=== PATIENT | female | born 2000 | race Caucasian/White ===

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

== ENCOUNTER → 2020-03-02 | Outpatient (REF) | payer MEDICAID, OTHER ==
[2020-03-02 14:20] LABS: HEMOGLOBIN A1c 5.5 %
[2020-03-02 15:44] LABS: CHLAMYDIA DNA AMPLIFICATION NEGATIVE (NEGATIVE); GC DNA AMPLIFICATION NEGATIVE (NEGATIVE)
== END ==
LOC: M PLALAB 11:45
PROVIDERS: ATTEND Advanced Practice Midwife
DX: E28.2 Polycystic ovarian syndrome (principal); Z11.3 Encounter for screening for infections with a predominantly sexual mode of transmission

== ENCOUNTER → 2020-03-04 | Outpatient (CLI) | payer OTHER, SELFPAY | LOC: M LABSMTC 10:58 | PROVIDERS: ATTEND Pediatrics | DX: Z20.822 Contact with and (suspected) exposure to COVID-19 (principal) ==

== ENCOUNTER → 2020-06-09 | Outpatient (CLI) | payer MEDICAID ==
--- NOTE | 2020-06-09 15:37 | REP ---
INDICATION: E28.2 PCOS,Z30.431 SURVEILLANCE OF IUD. COMPARISON: Comparison pelvic sonography 20 August 2019.. TECHNIQUE: Transabdominal and transvaginal scanning were performed. FINDINGS: Uterine dimensions are normal at 8.0 x 3.0 x 4.1 cm. Endometrial echo is 0.4 cm thick and centrally placed. No free fluid is seen in the cul-de-sac. Visualized bladder jasmine are smooth. An IUD is again noted in the uterine endometrium in good position. Visualized bladder jasmine are smooth. The right ovary has dimensions of 3.8 x 2.3 x 2.8 cm. It's Doppler flow is normal with a resistive index of 0.63. The left ovary dimensions are normal as well at 4.0 x 2.1 x 3.1 cm. It's Doppler flow was normal with resistive index of 0.69. IMPRESSION: Normal pelvic sonography. IUD remains in place, good position. <Electronically signed by Efren Persaud > 06/09/20 [id number]
== END ==
LOC: M WHC 14:55
PROVIDERS: ATTEND Advanced Practice Midwife
DX: E28.2 Polycystic ovarian syndrome (principal); Z30.431 Encounter for routine checking of intrauterine contraceptive device

== ENCOUNTER → 2020-07-13 | Outpatient (REF) | payer OTHER | LOC: M LAB REF 11:52 | PROVIDERS: ATTEND Physician Assistant | DX: B34.9 Viral infection, unspecified (principal) ==

== ENCOUNTER → 2020-09-28 | Outpatient (REF) | LOC: M LABSMTC 12:08 | PROVIDERS: ATTEND Pediatrics | DX: Z20.822 Contact with and (suspected) exposure to COVID-19 (principal) ==

== ENCOUNTER → 2021-02-21 | Outpatient (REF) | LOC: M LABSMTC 12:37 | PROVIDERS: ATTEND Pediatrics | DX: Z20.822 Contact with and (suspected) exposure to COVID-19 (principal) ==

== ENCOUNTER → 2021-06-04 | Outpatient (CLI) | payer OTHER, MEDICAID ==
[2021-06-04 15:48] LABS: BASO % 0.2 % (0.0-1.0); EOS # 0.1 10^3/uL (0.0-0.5); EOS % 0.9 % (0.0-3.0); HEMATOCRIT 40.3 % (36.0-47.0); HEMOGLOBIN 13.3 g/dl (12.0-15.5); LYMPH # 3.5 10^3/uL (1.5-5.0); LYMPH % 39.3 % (24.0-44.0); MEAN CORPUSCULAR HEMOGLOBIN 30.7 pg (27.0-33.0); MEAN CORPUSCULAR VOLUME 93.1 fl (80.0-96.0); MONO # 0.9 10^3/uL (0.0-0.8); MONO % 10.3 % (2.0-8.0); NEUTROPHILS # 4.3 10^3/uL (1.5-8.5); NEUTROPHILS % 48.8 % (36.0-66.0); PLATELET COUNT, AUTOMATED 361 10^3/uL (150-450); RED BLOOD COUNT 4.33 10^6/uL (4.00-5.40); WHITE BLOOD COUNT 8.9 10^3/uL (4.0-10.0)
[2021-06-04 16:29] LABS: BLOOD UREA NITROGEN 14 MG/DL (7-18); CALCIUM LEVEL 8.8 MG/DL (8.5-10.1); CARBON DIOXIDE LEVEL 30 MEQ/L (21-32); CHLORIDE LEVEL 107 MEQ/L (98-107); CREATININE FOR GFR 0.74 MG/DL (0.55-1.30); GLOMERULAR FILTRATION RATE > 60.0 (>60); GLUCOSE, FASTING 91 MG/DL (70-100); SODIUM LEVEL 141 MEQ/L (136-145)
[2021-06-04 17:11] LABS: TOTAL 25(OH) VITAMIN D 12.7 NG/ML (30.0-100.0)
== END ==
LOC: M WUC 11:57
PROVIDERS: ATTEND Family Medicine
DX: F41.9 Anxiety disorder, unspecified (principal)

== ENCOUNTER → 2021-08-02 | Outpatient (CLI) | payer BC ==
[2021-08-02 15:12] LABS: HEMOGLOBIN A1c 5.3 %
[2021-08-02 16:21] LABS: GC DNA AMPLIFICATION NEGATIVE (NEGATIVE)
== END ==
LOC: M PLALAB 12:09
PROVIDERS: ATTEND Advanced Practice Midwife
DX: Z12.4 Encounter for screening for malignant neoplasm of cervix (principal)
CPT/HCPCS: 36415; 83036; 87661; 87810; 87850; G0123

== ENCOUNTER → 2021-10-23 | Outpatient (REF) | LOC: M EMP 15:17 | PROVIDERS: ATTEND Family Medicine | DX: Z20.822 Contact with and (suspected) exposure to COVID-19 (principal) ==

== ENCOUNTER → 2021-11-07 | Outpatient (REF) | LOC: M LABSMTC 11:08 | PROVIDERS: ATTEND Family Medicine | DX: Z20.822 Contact with and (suspected) exposure to COVID-19 (principal); Z11.52 Encounter for screening for COVID-19 ==

== ENCOUNTER → 2022-03-12 | Outpatient (REF) ==
[2022-03-12 13:45] LABS: RSV AMPLIFICATION NEGATIVE (NEGATIVE)
== END ==
LOC: M LABSMTC 10:09
PROVIDERS: ATTEND Family Medicine
DX: Z20.828 Contact with and (suspected) exposure to other viral communicable diseases (principal); Z11.52 Encounter for screening for COVID-19

== ENCOUNTER → 2023-03-07 | Outpatient (CLI) | payer OTHER ==
[2023-03-07 16:09] LABS: HEMOGLOBIN A1c 5.4 % (4.0-6.0)
[2023-03-07 16:22] LABS: ALBUMIN 3.5 G/DL (3.2-5.2); ALKALINE PHOSPHATASE 89 U/L (46-116); ALT/SGPT 75 U/L (7.0-40); AST/SGOT 42 U/L (<34); BILIRUBIN,TOTAL 1.3 MG/DL (0.3-1.2); BLOOD UREA NITROGEN 9 MG/DL (9-23); CARBON DIOXIDE LEVEL 29 MMOL/L (20-31); CHLORIDE LEVEL 104 MMOL/L (98-107); CHOLESTEROL LEVEL 214 MG/DL (<200); CHOLESTEROL RISK RATIO 4.41 (<5); CREATININE FOR GFR 0.69 MG/DL (0.55-1.30); GLOMERULAR FILTRATION RATE > 60.0 (>60); GLUCOSE, FASTING 89 MG/DL (60-100); HDL CHOLESTEROL 48.5 MG/DL (>40); LDL CHOLESTEROL 134.9 MG/DL (<100); NON-HDL-C 165.5 MG/DL; POTASSIUM SERUM 4.1 MMOL/L (3.5-5.1); SODIUM LEVEL 140 MMOL/L (136-145); TOTAL PROTEIN 6.7 G/DL (5.7-8.2); TRIGLYCERIDES LEVEL 153 MG/DL (<150)
[2023-03-07 16:26] LABS: FREE T4 1.39 NG/DL (0.89-1.76); THYROID STIMULATING HORMONE 6.861 uIU/ML (0.55-4.78)
== END ==
LOC: M PLALAB 13:54
PROVIDERS: ATTEND Advanced Practice Midwife
DX: E28.2 Polycystic ovarian syndrome (principal)

== ENCOUNTER → 2023-09-02 | Outpatient (REF) | payer BC ==
[2023-09-02 17:25] LABS: APPEARANCE, URINE TURBID (CLEAR); BACTERIA, URINE AUTO 3+ (NEGATIVE); BILIRUBIN, URINE AUTO NEGATIVE (NEGATIVE); BLOOD, URINE BLOOD 3+ (NEGATIVE); COLOR, URINE YELLOW (YELLOW); GLUCOSE, URINE (UA) AUTO NEGATIVE (NEGATIVE); KETONE, URINE AUTO NEGATIVE (NEGATIVE); LEUKOCYTE ESTERASE, URINE AUTO 3+ (NEGATIVE); MUCUS, URINE SMALL (NEGATIVE); NITRITE, URINE AUTO POSITIVE (NEGATIVE); PROTEIN, URINE AUTO 2+ mg/dL (NEGATIVE); RBC, URINE AUTO TNTC /HPF (0-3); SPECIFIC GRAVITY URINE AUTO 1.017 (1.002-1.035); SQUAMOUS EPITHELIAL CELL UR AU 0 /HPF (0-6); UROBILINOGEN, URINE AUTO 0.2 mg/dL (0.0-2.0); WBC, URINE AUTO TNTC /HPF (0-3)
== END ==
LOC: M LAB REF 16:14
PROVIDERS: ATTEND Physician Assistant Medical
DX: N39.0 Urinary tract infection, site not specified (principal)

== ENCOUNTER → 2023-12-15 | Outpatient (REF) | payer BC ==
[2023-12-15 18:03] LABS: THYROID STIMULATING HORMONE 3.839 uIU/ML (0.55-4.78)
[2023-12-15 18:04] LABS: FREE T4 1.22 NG/DL (0.89-1.76)
== END ==
LOC: M SFHCLERA 08:48
PROVIDERS: ATTEND Family Medicine
DX: Z00.00 Encounter for general adult medical examination without abnormal findings (principal); R79.89 Other specified abnormal findings of blood chemistry

== ENCOUNTER → 2024-04-12 | Outpatient (REF) | LOC: M EMP 08:41 | PROVIDERS: ATTEND Family Medicine | DX: Z11.52 Encounter for screening for COVID-19 (principal) ==

== ENCOUNTER 2024-05-13 10:00 | Day surgery (SDC) | payer BC ==
[~2024-05-13] VITALS: Ht 160 cm; Wt 109.3 kg
[~2024-05-13 10:00] MED LIST: AMIT75TA PO; BUSP5TA PO; PEPC1TAB5 PO; SEMA2.4P SQ; TAMS1CAP17 PO
[2024-05-13] MEDS ORDERED: LR 1,000 ML IV SCH ×2 (10:30→14:30)
[2024-05-13] MEDS: MIDAZOLAM INJ 2MG/2ML VIAL IV STA (12:56)
[2024-05-13] MEDS ORDERED: LIDOCAINE 2% 100MG/5ML SDV (FOR ANES.) As Ordered ONE (13:47)
[2024-05-13] MEDS ORDERED: ACETAMINOPHEN 1000MG/100ML IV BAG As Ordered ONE (13:47)
[2024-05-13] MEDS ORDERED: ROCURONIUM BROMIDE 50MG/5ML VIAL As Ordered ONE (13:47)
[2024-05-13] MEDS ORDERED: ONDANSETRON 4MG 2ML VIAL As Ordered ONE (13:47)
[2024-05-13] MEDS ORDERED: propofoL 200 MG/20 ML VIAL As Ordered ONE (13:47)
[2024-05-13] MEDS ORDERED: fentaNYL 100 MCG/2 ML INJECTION As Ordered ONE (13:47)
[2024-05-13] MEDS: OXYMETAZOLINE 0.05% NASAL SPRAY As Ordered ONE (13:52)
[2024-05-13] MEDS ORDERED: METOCLOPRAMIDE INJ 10MG/2ML VIAL As Ordered ONE (14:04)
[2024-05-13] MEDS ORDERED: fentaNYL 100 MCG/2 ML INJECTION IV PRN (14:30)
[2024-05-13] MEDS ORDERED: HYDROMORPHONE HCL 0.5 MG/ 0.5 ML SYRINGE IV PRN (14:30)
[2024-05-13] MEDS: oxyCODONE 5MG TAB PO PRN (14:54)
[2024-05-13] MEDS: ONDANSETRON 4MG 2ML VIAL IV PRN (14:54)
[2024-05-13 15:18] VITALS: BP 127/76; TEMP 97.1; O2SAT 96
== END 2024-05-13 15:50 | disposition home or self-care (01) ==
LOC: M SDC 10:00
PROVIDERS: ATTEND Otolaryngology
DX: J35.01 Chronic tonsillitis (principal); G47.00 Insomnia, unspecified; E28.2 Polycystic ovarian syndrome; Z88.2 Allergy status to sulfonamides; Z79.899 Other long term (current) drug therapy; F41.9 Anxiety disorder, unspecified
CPT/HCPCS: 42826; 88302; J0131; J1100; J2250; J2405; J2765; J3010

== ENCOUNTER → 2024-06-23 | Outpatient (CLI) | payer BC | LOC: M PLAIMG 15:21 | PROVIDERS: ATTEND Physician Assistant | DX: N20.1 Calculus of ureter (principal) ==

== ENCOUNTER → 2024-11-02 | Outpatient (CLI) | payer BC | LOC: M WHC 08:03 | PROVIDERS: ATTEND Advanced Practice Midwife | DX: N94.10 Unspecified dyspareunia (principal); N92.6 Irregular menstruation, unspecified; R10.2 Pelvic and perineal pain; Z30.431 Encounter for routine checking of intrauterine contraceptive device ==